=== PATIENT | female | born 1970 | race Caucasian/White ===

== ENCOUNTER 2025-03-13 03:09 | Emergency (ER) | payer BC, SELFPAY ==
[2025-03-13 03:17] VITALS: BP 125/97; PULSE 74; RESP 16; TEMP 36.6; O2SAT 97; BMI 36.3
--- NOTE | 2025-03-13 03:18 | ED.GENADULT ---
HPI - General Adult General Chief complaint: Back Injury/Pain Stated complaint: lower lumbar pain Time Seen by Provider: 03/13/25 03:13 History of Present Illness HPI narrative: Patient is a 54-year-old woman who had low back fusion 4 days ago. She has had continued pain with radiculopathy down the left leg. She has no lower extremity swelling no numbness no tingling no weakness. His minimal pain in the low lumbar spine. He has no bowel or bladder symptoms no fevers no chills. She does have hydrocodone for pain. She states her pain had been under reasonable control but is been escalating tonight. No other concerns no recent injuries. No cough for shortness of breath no ecchymosis or bruising. Related Data Allergies Allergy/AdvReac Type Severity Reaction Status Date / Time Sulfa (Sulfonamide Allergy Verified 03/13/25 03:21 Antibiotics) Tetracyclines Allergy Verified 03/13/25 03:21 Review of Systems Status of ROS: Reports: 10 or more systems reviewed and unremarkable except as noted in History and below Exam Narrative: Exam Narrative: EXAM GENERAL: Patient appears comfortable and well. EYES: No scleral icterus. LYMPH: No supraclavicular or cervical lymphadenopathy. SKIN: Visible skin seen during exam normal or with benign process only. EXT: No dependent lower extremity pedal edema. HEART: Regular rate and rhythm with no murmurs, rubs, or gallops. LUNGS: Clear to auscultation bilaterally with no crackles or wheezes. ABD: Soft, non tender, non distended. PSYCH: Good eye contact, speech is not pressured. Neurologic cranial nerves 2-12 grossly intact no focal defects. No pain to palpation of the left lower extremity no lower extremity edema or bruising. Medical Decision Making MDM Narrative Medical decision making narrative: Patient seen and examined. I find no other significant findings. Her incision site looks great. She musculoskeletally has a normal exam. She has normal neurologic exam. Homans sign is negative in the lower extremity. She has no bruising or swelling. I suspect this to be temporary radiculopathy following lumbar fusion. I do not believe further intervention is needed. I do not believe she needs an ultrasound of her left lower extremity. I did consider a differential that was broad and included DVT radiculopathy infection but I find most likely that she is going through a brief time of a radicular symptoms as she heals from her low back surgery. She will continue current management follow up with her primary physician as needed. Discharge Plan Discharge Clinical Impression: Lumbar radiculopathy Patient Disposition: Home, Self-Care Condition: Stable Instructions: Lumbar Radiculopathy (ED) Additional Instructions: Continue current medications Follow-up as scheduled. Try to remain active. Activity Level: No Restrictions Discharge Diet: Regular Stand Alone Forms: ScalingData Info Instructions
--- OUTSIDE RECORDS SUMMARY | 2025-03-13 03:36 | XMS_ITS | Clinical Summary ---
Author Organization [facility] Address [address] [place] [id number] Care Team Providers Care Education Sales Consultant Name Role Phone Kiersten Munoz Primary Care Provider Un available Allergies Active Allergy Reactions Criticality Noted Date Comments Egg GI Upset 05/29/2016 Sulfa (Sulfonamide Antibiotics) Rash 08/20 Tetracycline GI Upset 09/02/2011 Medications MULTIVITAMIN ORAL Take 1 tablet by mouth once daily. Active ibuprofen (ADVIL; MOTRIN) 800 mg tablet Take 1 tablet by mouth 3 times daily with meals. 30 tablet 0 05/25/20 14 Active gabapentin (NEURONTIN) 300 mg capsule Take 900 mg by mouth once daily. Active lidocaine 5% (LIDODERM) 5 % patch Apply on dry, clean, hairless skin once daily if needed. Apply 1 patch to painful area of skin for up to 12 hours within a 24-hour period. Active cetirizine (ZYRTEC) 10 mg tablet Take 10 mg by mouth once daily. As needed Active cyclobenzaprine (FLEXERIL) 10 mg tablet Take 10 mg by mouth one time if needed for Muscle Spasm. Active ibuprofen (ADVIL; MOTRIN) 200 mg tabletIndications: Post-op pain Take 1-3 tablets by mouth every 6 hours if needed for Pain. 100 tablet 0 05/30/20 16 Active ferrous sulfate, 65 mg elemental, tabletIndications: Anemia due to blood loss, acute Take 1 tablet by mouth 2 times daily with meals. 100 tablet 0 05/30/20 16 Active HYDROcodone-acetam inophen, 5-325 mg, (NORCO) per tabletIndications: Post-op pain Take 1-2 tablets by mouth every 4 hours if needed for Pain Max acetaminophen dose: 4000 mg in 24 hrs. 20 tablet 0 05/30/20 16 Active albuterol HFA 90 mcg/actuation inhaler Inhale 2 Puffs by mouth 4 times daily if needed. Active magnesium oxide (MAG-OX 400) 400 mg tablet Take 400 mg by mouth once daily. Active SUMAtriptan (IMITREX) 50 mg tablet Take 100 mg by mouth every 2 hours if needed for Migraine. Max dose: 200mg per 24 hrs. Active HYDROcodone-acetam inophen, 5-325 mg, (NORCO) per tabletIndications: Carpal tunnel syndrome, unspecified laterality Take 1-2 tablets by mouth every 6 hours if needed for Pain Max acetaminophen dose: 4000 mg in 24 hrs. 30 tablet 0 06/20/20 16 Active ondansetron (ZOFRAN ODT) 4 mg disintegrating tabletIndications: Carpal tunnel syndrome, unspecified laterality Place 1 tablet on the tongue every 8 hours if needed for Nausea/Vomiting. 20 tablet 0 06/20/20 16 Active docusate (COLACE) 100 mg capsuleIndications :Carpal tunnel syndrome, unspecified laterality Take 1 capsule by mouth 2 times daily. 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 Family History Medical History Relation Name Comments Cancer-breast Maternal Aunt Relation Name Status Comments Maternal Aunt Social History Tobacco Use Types Packs/Day Years Used Date Smoking Tobacco: Former Smokeless Tobacco: Never Comments:quit Oct 2013 Alcohol Use Standard Drinks/Week Comments No 0 (1 standard drink = 0.6 oz pur e alcohol) Comments No Sex and Gender Information Value Date Recorded Sex Assigned at Not on file Legal Sex Female 6:49 AM RATE ANALYST Gender Identity Not on file Sexual Orientation Not on file Obstetrics History Last Filed Vital Signs Vital Sign Reading Time Taken Comments Blood Pressure 142/80 10/19/2023 4:48 PM RATE ANALYST Pulse 66 10/19/2023 4:48 PM RATE ANALYST Temperature 36.4 C (97.5 F) 10/19/2023 3:38 PM RATE ANALYST Respiratory Rate 18 10/19/2023 3:38 PM RATE ANALYST Oxygen Saturation 97% 10/19/2023 4:48 PM RATE ANALYST Inhaled Oxygen Concentration - - Weight 90.7 kg (200 lb) 10/19/2023 3:38 PM RATE ANALYST Height 167.6 cm (5' 6) 10/19/2023 3:38 PM RATE ANALYST Body Mass Index 32.28 10/19/2023 3:38 PM RATE ANALYST Plan of Treatment Health Maintenance Due Date Last Done Comments Tdap 1981 Depression screening for age 12+ 1982 HIV for age 15-65 1985 BMI (ht and wt on same day) for age 18+ 1988 Hepatitis C screening for age 18-79 1988 Hepatitis B series for 19+ ( 1 of 3 - 19+ 3-dose series) 1989 Tetanus booster 1990 Pap test for age 21-65 1991 Colonoscopy through age 75 2015 Lipids for age 45-75 2015 Mammogram for age 45-75 2015 04/15/2014 Pneumococcal series for age 50+ (1 of 1 - PCV) 021 Zoster (shingles) series for age 50+ (1 of 2) 11/17/19 21 COVID-19 vaccine series ( - season) 4 Influenza Vaccine (Season Ended) 2025 Procedures Procedure Name Priority Date/Time Associated Diagnosis Comments XR MAMMO UNI DIAG FFDM RIGHT (IA) Routine 04/15/2014 12:50 PM CDT Breast calcification, right from Last 3 Months or Most Recently Relevant to Health Maintenance Results * XR MAMMO UNI DIAG FFDM RIGHT (04/15/2014 12:50 PM CDT) Anatomical Region Laterality Modality BREASTS, Breast Right Right Mammograph y Impressions 04/16/2014 6:52 PM CDT BI-RADS Category 4: Suspicious. Stereotactic biopsy suggested of the indeterminate microcalcifications in the upper outer quadrant of the RIGHT breast. Keegan Quiros M.D. Diagnostic Radiologist [email or web address] TJO/ec / Narrative 04/16/2014 6:52 PM CDT MAGNIFICATION VIEWS RIGHT BREAST, 04/15/2014 CLINICAL HISTORY: RIGHT breast calcification. Because of some microcalcifications in the upper outer quadrant, magnification spot compression views are obtained of the RIGHT breast in the MLO and CC projections, true lateral view of the RIGHT breast was also obtained. TECHNIQUE: Computer-aided detection was utilized. COMPARISON: Screening exam of 04/05/2014. FINDINGS: There is indeterminate loosely clustered, extensive microcalcifications in the upper outer quadrant. This is markedly asymmetrical when compared to the LEFT. This is indeterminate. Stereotactic biopsy is suggested for further evaluation. This has already been scheduled by the technologist. Procedure Note Keegan Quiros MD - 04/16/2014 MAGNIFICATION VIEWS RIGHT BREAST, 04/15/2014 CLINICAL HISTORY: RIGHT breast calcification. Because of somemicrocalcifications in the upper outer quadrant, magnification spotcompression views are obtained of the RIGHT breast in the MLO and CCprojections, true lateral view of the RIGHT breast was also obtained. TECHNIQUE: Computer-aided detection was utilized. COMPARISON: Screening exam of 04/05/2014. FINDINGS: There is indeterminate loosely clustered, extensivemicrocalcifications in the upper outer quadrant. This is markedlyasymmetrical when compared to the LEFT. This is indeterminate.Stereotactic biopsy is suggested for further evaluation. This has alreadybeen scheduled by the technologist. IMPRESSION: BI-RADS Category 4: Suspicious. Stereotactic biopsy suggested of the indeterminate microcalcifications inthe upper outer quadrant of the RIGHT breast. Keegan Quiros M.D. Diagnostic Radiologist [email or web address] PJO/ec / us Kiersten JERNIGAN MAMMO Final Res ult from Last 3 Months or Most Recently Relevant to Health Maintenance Insurance [facility] Advance Directives * Full Code (Latest Code Status on File) Date Activated Date Inactivated Comments 06/20/2016 12:30 PM 06/20/2016 3:23 PM Question Answer Comments Code Status Discussion: Not Discussed * Full Code Date Activated Date Inactivated Comments 06/20/2016 10:41 AM 06/20/2016 12:30 PM Question Answer Comments Code Status Discussion: Not Discussed * Full Code Date Activated Date Inactivated Comments 05/30/2016 11:10 AM 05/30/2016 6:37 PM Question Answer Comments Code Status Discussion: Not Discussed * Full Code Date Activated Date Inactivated Comments 05/30/2016 6:05 AM 05/30/2016 11:10 AM Question Answer Comments Code Status Discussion: Not Discussed * Full Code Date Activated Date Inactivated Comments 05/28/2016 12:10 PM 05/29/2016 10:02 PM Question Answer Comments Code Status Discussion: Not Discussed Care Teams Education Sales Consultant Relationship Specialty Start Date End Date Kiersten Munoz PA PCP - General Physician Animal Care Specialist 04/28/14
--- OUTSIDE RECORDS SUMMARY | 2025-03-13 03:36 | XMS_ITS | Clinical Summary ---
Author Organization [facility] Address [address] [place] [address] Care Team Providers Care Glue Bone Crusher Name Role Phone Unavailable Primary Care Provider Unavailabl e Source Comments Patient records contain information from all sites at [facility]. For routine questions regarding patient records, call [phone] during business hours, M-F 8:00 AM - 5:00 PM Central Time. Record requests for emergency care only can be directed to [phone] at any time.[facility] Allergies Active Allergy Reactions Criticality Noted Date Comments Egg GI intolerance 10/30/2023 Egg White GI intolerance 06/13/2016 Sulfa (Sulfonamide Antibiotics) Rash 02/18 Tetracycline GI intolerance 03/08/2004 Medications SUMAtriptan (IMITREX) 25 mg tablet Take 25 mg by mouth. 05/05/2014 Active ibuprofen (ADVIL,MOTRIN) 800 mg tablet Take 800 mg by mouth. 06/06/2014 Active cyclobenzaprine (FlexeriL) 5 mg tablet 12/07/2024 Active methylPREDNISolo ne (MedroL DosePak) 4 mg tablet 12/07/2024 Active Active Problems Problem Noted Date Diagnosed Date Personal History Of Malignant Neoplasm Of Blaemile r 12/08/2024 Migraine Headache 05/12/2014 Resolved Problems Problem Noted Date Diagnosed Date Resolved Date Hematuria Gross 10/29/2023 12/08/2024 Mass Bladder 10/29/2023 12/08/2024 Social History Tobacco Use Types Packs/Day Years Used Date Smoking Tobacco: Every Day Cigarettes Smokeless Tobacco: Never Tobacco Cessation:Ready to Q uit: Not Asked; Counseling Given: Not Answered Alcohol Use Standard Drinks/Week Comments Not Currently 0 (1 standard drink = 0.6 oz pur e alcohol) Nutrition Answer Date Recorded Nutrition: EVOO Fat Source Unknown 01/24 Nutrition: Servings of Fruits/Vegetables per Day Not on file 01/24/2022 Dental Answer Date Recorded Dental: Regular Dentist Unknown 01/25/20 22 Comments No Sex and Gender Information Value Date Recorded Sex Assigned at Female 05/08/2024 7:32 PM CDT Legal Sex Female 3:21 PM CDT Gender Identity Female 05/08/2024 7:32 PM CDT Sexual Orientation Straight 05/08/2024 7: 32 PM CDT Last Filed Vital Signs Vital Sign Reading Time Taken Comments Blood Pressure 138/91 11/03/2023 12:50 PM GAS AND OIL CHECKER Pulse 61 11/03/2023 1:00 PM GAS AND OIL CHECKER Temperature 36.8 C (98.2 F) 11/03/2023 11:13 AM GAS AND OIL CHECKER Respiratory Rate 16 11/03/2023 12:50 PM GAS AND OIL CHECKER Oxygen Saturation 98% 11/03/2023 1:00 PM GAS AND OIL CHECKER Inhaled Oxygen Concentration - - Weight 93.5 kg (206 lb 3.2 oz) 11/03/2023 9:08 A M GAS AND OIL CHECKER Height 167.6 cm (5' 6) 11/03/2023 9:08 AM GAS AND OIL CHECKER Body Mass Index 33.28 11/03/2023 9:08 AM GAS AND OIL CHECKER Plan of Treatment Health Maintenance Due Date Last Done Comments CT Colonography 1970 Cologuard 1970 Colonoscopy 1970 Colorectal Cancer Screening 1970 FIT 1970 HIV Screening 1970 Hepatitis C Screening 1970 Lipid (Cholesterol) Screening 1970 Mammogram 1970 Tobacco Cessation counseling 1970 Pneumococcal vaccine (50+ years) (1 of 2 - PCV) 1989 Zoster Vaccines (1 of 2) 2020 DTaP,Tdap,and Td Vaccines (3 - Td or Tdap) 11/18/2022 11/18/2012, 09/25/2011, 03/08/2004 COVID-19 Vaccine (1 - 2023-2 5 season) 2024 Influenza Vaccine (#1) 2024 Depression Screening (Annual PHQ-2) 10/20/2024 Fasting Glucose for Diabetes Screening 10/19/2026 10/19/2023 Hepatitis B Vaccines Completed 02/14/2004, 02/01/2003, 09/28/2002 IPV Vaccines Aged Out No longer eligi ble based on patient's age to complete this topic Insurance [facility]
--- OUTSIDE RECORDS SUMMARY | 2025-03-13 03:36 | XMS_ITS | Clinical Summary ---
[facility] Address [address] [place] [address] Care Team Providers Care Dental Insurance Coordinator Name Role Phone Clinician, Not Found MD Primary Care Provider Un available Source Comments You are receiving this document as you are listed as the primary care provider,follow-up provider, or the patient has been referred to you for consultation.This is in compliance with the Medicare and[facility] Hospital[facility] EHR Incentive Program,which states Providers who transition their patient to another setting of careor provider of care or refers their patient to another provider of care shouldprovide summary care record for each transition of care or referral. [employer] Allergies Active Allergy Reactions Criticality Noted Date Comments Egg White (Egg Protein) Gastrointestinal 2015 Sulfa Antibiotics Rash 03/08/2004 Tetracycline Gastrointestinal 03/08/2004 Medications Multiple Vitamins-Minera ls (MULTIVITAMIN OR) Take 1 tablet by mouth daily (every 24 hours). 03/08/2004 Active SUMAtriptan (IMITREX) 25 MG tablet Take 25 mg by mouth as needed for Migraine. May repeat after 2 hours if needed. Max 8 tabs/24 hours. Max 9 days/month 05/05/2014 Active ibuprofen (MOTRIN) 800 MG tablet Take 800 mg by mouth 3 times daily. 06/06/2014 Active lidocaine (LIDODERM) 5 % patchIndication s:NAT RAYMUNDO FriMay 10, 2016 9:06 AM Received from: External Pharmacy Indications: PN: NAT RAYMUNDO FriMay 10, 2016 9:06 AM Received from: External Pharmacy 0 05/06/2016 Active cetirizine (ZYRTEC) 10 MG tabletIndicatio ns:ALANA PORRAS [facility] Jun 13, 2016 1:03 PM [facility] Take 10 mg by mouth. 06/13/2016 Active cyclobenzaprine (FLEXERIL) 10 MG tabletIndicatio ns:ALANA PORRAS [facility] Jun 13, 2016 1:03 PM [facility] Take 10 mg by mouth. 06/13/2016 Active ferrous sulfate 325 (65 FE) MG tabletIndicatio ns:ALANA PORRAS [facility] Jun 13, 2016 1:03 PM [facility] Take 325 mg by mouth. 05/30/2016 Active gabapentin (NEURONTIN) 300 MG capsuleIndicati ons:ALANA PORRAS [facility] Jun 13, 2016 1:03 PM Re[facility]: [facility] Take 900 mg by mouth. 06/13/2016 Active Active Problems Problem Noted Date Diagnosed Date Menorrhagia with regular cycle 05/10/2016 Submucous leiomyoma of uterus 05/10/2016 Headache, migraine 05/12/2014 Immunizations Immunization Administration Dates Next Due Td 03/08/2004 Family History Medical History Relation Name Comments Clotting Disorder Father Cancer Maternal Grandfather Cancer Maternal Grandmother Cancer Paternal Grandfather Cancer Paternal Grandmother Relation Name Status Comments Father Alive Mother Alive Maternal Grandfather Maternal Grandmother Paternal Grandfather Paternal Grandmother Sister Alive Social History Tobacco Use Types Packs/Day Years Used Date Smoking Tobacco: Former Smokeless Tobacco: Never Comments:Smoking History Pac ks/day: Alcohol Use Standard Drinks/Week Comments No 0 (1 standard drink = 0.6 oz pur e alcohol) Comments No Sex and Gender Information Value Date Recorded Sex Assigned at Not on file Legal Sex Female 4:17 AM CDT Gender Identity Not on file Sexual Orientation Not on file Occupation Industry Job Start Date Job End Date [place] [employer] Not on file Not on file Not on file Last Filed Vital Signs Vital Sign Reading Time Taken Comments Blood Pressure 140/82 07/11/2016 1:06 PM CDT Pulse 72 05/12/2014 11:20 AM CDT Temperature 36.3 C (97.3 F) 06/13/2016 1:05 PM CDT Respiratory Rate 14 05/12/2014 11:20 AM CDT Oxygen Saturation - - Inhaled Oxygen Concentration - - Weight 106.6 kg (235 lb) 07/11/2016 1:06 PM CDT Height 167.6 cm (5' 6) 05/23/2016 11:05 AM CDT Body Mass Index 37.93 05/23/2016 11:05 AM CDT Plan of Treatment Health Maintenance Due Date Last Done Comments Colon Cancer Screening Plan Due 1970 Hep C Screening (Preventive Services) 1970 Mammogram 1970 HIV Screening (Preventive Services) 1986 Adult Preventive Visit 1988 HepB Vaccine (1) 1989 DTaP/Tdap/Td Vaccine (1 - Tdap) 03/09/2004 03/08/2004 Cholesterol 2015 Cervical Cancer Screening 05/23/20172015, 05/23/2016 (Completed), 05/03/2016, Additional history exists Pneumococcal Vaccine 50+ Yrs (1 of 1 - PCV) 2020 Zoster/Shingles Vaccine (1 of 2) 2020 COVID-19 Vaccine (1 - 2023- season) 2024 Influenza Vaccine (Season Ended) 2025 HepA Vaccine Aged Out No longer eligi ble based on patient's age to complete this topic Hib Vaccine Aged Out No longer eligi ble based on patient's age to complete this topic IPV (Polio) Vaccine Aged Out No longe r eligible based on patient's age to complete this topic MCV4 Vaccine Aged Out No longer eligi ble based on patient's age to complete this topic Meningococcal B Vaccine Aged Out No l onger eligible based on patient's age to complete this topic Procedures Procedure Name Priority Date/Time Associated Diagnosis Comments ANATOMICAL PATH LIQUID BASED Routine 05/03/2016 2:40 PM CDT from Last 3 Months or Most Recently Relevant to Health Maintenance Results * Pap Smear (05/03/2016 2:40 PM CDT) 05/03/2016 2:40 PM CDT Narrative HP CONVERSION - 05/17/2016 2:11 PM CDT FINAL GYNECOLOGICAL CYTOLOGY REPORT Pathology #: [id number] Date Obtained: 05/03/2016 Date Received: 05/06/2016 INTERPRETATION/RESULTS: Atypical squamous cells, cannot exclude high grade squamous intraepithelial lesion (ASC-H). COMMENTS: There are some cells in which glandular atypia cannot be entirely excluded. Reviewed by RWS. SPECIMEN ADEQUACY: Satisfactory for Evaluation. Endocervical cells/transformation zone component present. Verified on 05/17/2016 by ALVARO DE OLIVEIRA MD (electronic signature) CLINICAL NOTES: Abnormal bleeding: No, LMP: 04/24/16, Menstrual status: None Apply, Current form of therapy: None apply LIQUID BASED PAP SMEAR SPECIMEN TYPE: ROUTINE CERVICAL PAP TEST PLEASE NOTE: The pap smear is a screening test designed to aid in the detection of cervical cancer and its precursor lesions. It is not a diagnostic procedure and should not be used as the sole means of detecting cervical cancer. Both false-positive and false-negative reports may occur. Performed at [facility], [address] [place] [id number] Transcriptions 11/27/2016 3:31 PM CSTNotes Recorded by Layla Key RN on 05/20/2016 at 8:59 AMPer staff message to provider from [facility] RN:From: MARINA Whyteent: 05/20/2016 8:53 AMTo: TERE Nicoleubject: RE: Pap resultsYes please. She needs at least an ECC. Mio----- Message -----From: TERE Nicoleent: 05/17/2016 2:29 PMTo: MARINA Whyteubject: Pap resultsHi Yoana Clark's pap result is:ASC-H, some cells in which glandular atypia cannot be entirelyexcluded.HPV-I see she is scheduled for a total hysterectomy on 05/30/16. Would you like us to schedule her for a colposcopy?Thank you,Layla RN--[facility] us Maggy Lieberman MD LAB_1 Final Result HP CONVERSION from Last 3 Months or Most Recently Relevant to Health Maintenance Insurance [phone] [id number] (Work) [address] [place] [address] [facility] [place] [id number] [phone] [id number] (Work) [address] [place] [address] Care Teams Dental Insurance Coordinator Relationship Specialty Start Date End Date Clinician, Not Found, [place] [address] PCP - General 08/13/24
== END 2025-03-13 03:40 | disposition home or self-care (01) ==
LOC: ED 03:35
PROVIDERS: Emergency Provider Internal Medicine
DX: M54.16 Radiculopathy, lumbar region (principal)
CPT/HCPCS: 99283